=== PATIENT | male | born 1975 | race African-American/Black ===

== ENCOUNTER 2022-09-05 23:35 | Emergency (ER) | payer SELFPAY ==
[~2022-09-05] VITALS: Ht 188 cm; Wt 111.6 kg
--- NOTE | 2022-09-05 23:54 | NUR ---
DR JOSELO LLAMAS AT PT'S BEDSIDE FOR EVAL
--- NOTE | 2022-09-06 00:02 | NUR ---
PT TO CT W/ RN AT BEDSIDE
--- NOTE | 2022-09-06 00:12 | NUR ---
KATHY FROM HOME TO ER BED 10. AWAKE AND ALERT ABLE TO FOLLOW SOME COMMANDS. BREATHING EVEN AND UNLABORED. AMBULATED WITH ASISST. BROUGHT IN FOR SLURRED SPEECH, NOT MAKING SENSE IN WHAT HE WAS SAYING PER THE , AND RIGHT SIDE WEAKNESS. LAST KNOWN WELL TIME WAS AT 1200. PER PT WHEN SHE GOT HOME FROM WORK @ 7PM, SHE NOTED THAT THE THERE WAS SOMETHING OFF ABOUT THE PATIENT AND GOT WORST THROUGH OUT THE NIGHT. NOTED PT SLURRING WITH R ARM AND R LEG DRIFT. WAS CALLED TO BEDSIDE RIGHT AWAY FOR EVAL.
--- NOTE | 2022-09-06 00:15 | NUR ---
LAC #18G S/L BLOOD AND COVID ANTIGEN SWAB COLLECTED AND SENT TO LAB
[2022-09-06] MEDS ORDERED: IOHEXOL-350 100 ML VIAL IV ONE (00:16)
[2022-09-06] MEDS ORDERED: CT SWABBABLE VALVE TRANS SET 1 EA INFUS.SET MC ONE (00:16)
[2022-09-06] MEDS ORDERED: NICARDIPINE IN DEXTROSE,ISO-OS 200 ML IV ONE ×2 (00:41→02:18)
[2022-09-06 00:53] LABS: BASOPHILS % (AUTO) 0.2 % (0.0-2.0); EOSINOPHILS % (AUTO) 1.9 % (0.0-6.0); HEMATOCRIT 40 % (39-51); HEMOGLOBIN 12.9 g/dL (13.5-17.5); LYMPHOCYTES # (AUTO) 1.1 K/uL (0.8-4.8); LYMPHOCYTES % (AUTO) 18.6 % (20.0-44.0); MEAN CORPUSCULAR HGB CONC 33 g/dl (31.0-36.0); MEAN CORPUSCULAR VOLUME 88 fL (80-96); MONOCYTES # (AUTO) 0.4 K/uL (0.1-1.30); MONOCYTES % (AUTO) 5.9 % (2.0-12.0); NEUTROPHILS # (AUTO) 4.5 K/uL (1.8-8.9); NEUTROPHILS % (AUTO) 73.4 % (43.0-81.0); PLATELET COUNT (AUTO) 195 K/uL (150-450); WHITE BLOOD COUNT (AUTO) 6.1 K/uL (4.3-11.0)
[2022-09-06] MEDS ORDERED: NICARDIPINE IN NACL, ISO-OSM 200 ML IV ONE (01:00)
[2022-09-06] MEDS ORDERED: NIFEDIPINE XL 60 MG TAB.ER.24 PO ONE (01:00)
--- NOTE | 2022-09-06 01:08 | NUR ---
[facility] CALLED FOR HIGHER LEVEL OF CARE.
--- NOTE | 2022-09-06 01:08 | NUR ---
CARDENE WAS TITRATE UP TO 15MG/HR
[2022-09-06 01:13] LABS: CALCIUM, SERUM 8.8 mg/dL (8.5-10.1); CARBON DIOXIDE 31 mmol/L (21-32); CHLORIDE 105 mmol/L (98-107); CREATININE 2.1 mg/dL (0.6-1.3); GLUCOSE 91 mg/dL (74-106); POTASSIUM 3.1 mmol/L (3.5-5.1); SODIUM SERUM 143 mmol/L (136-145); UREA NITROGEN, BLOOD 23 mg/dL (7-18)
[2022-09-06 01:19] LABS: ALANINE AMINOTRANSFERASE 27 U/L (12-78); ALBUMIN 3.9 g/dL (3.4-5.0); ALKALINE PHOSPHATASE 76 U/L (46-116); ASPARTATE AMINOTRANSFERASE 28 U/L (15-37); BILIRUBIN,DIRECT 0.2 mg/dL (0.0-0.2); BILIRUBIN,TOTAL 0.4 mg/dL (0.2-1.0); TOTAL PROTEIN, SERUM 7.4 g/dL (6.4-8.2)
[2022-09-06] MEDS ORDERED: LABETALOL HCL IV 100MG VIAL ONE (01:23)
[2022-09-06] MEDS ORDERED: LABETALOL HCL IV 100MG VIAL IV ONE (01:30)
[2022-09-06] MEDS ORDERED: LEVETIRACETAM (500MG) 500 MG/5 ML VIAL IV ONE (01:38)
--- NOTE | 2022-09-06 01:44 | NUR ---
PT IS ACCEPTED TO [facility] UNDER DR GARZON TO THE 6ICU RM [id number] PER [facility] AT [facility], THEY WILL CALL US BACK WITH TRANSPORTATION ETA
--- NOTE | 2022-09-06 01:56 | NUR ---
[facility] ETA [id number]
[2022-09-06] MEDS ORDERED: LEVETIRACETAM (500MG) 500 MG in IV NS 0.9% 100 ML IV SCH (02:00)
--- NOTE | 2022-09-06 02:08 | NUR ---
REPORT GIVEN TO ARIANE LESTER FROM [facility] FOR [facility]
[2022-09-06 02:21] VITALS: BP 125/89
--- NOTE | 2022-09-06 02:32 | NUR ---
REPORT GIVEN TO DANUTA MCCULLOUGH TO TRANSFER PT TO [facility].
== END 2022-09-06 02:54 | disposition short-term general hospital (02) ==
LOC: ER 23:38
DX: I62.9 Nontraumatic intracranial hemorrhage, unspecified (principal); I16.1 Hypertensive emergency; I10 Essential (primary) hypertension
CPT/HCPCS: 99291; 70450; 71045; 99292; 93005; 85025; 36415; 80307; 70498; 96365; 96375; 87426; 70496; 80048; 80076; 84484; 85730; 82962; C9803; J3490; J7030 ×2; A4223; J1953 ×2; Q9967